=== PATIENT | female | born 1985 | race Caucasian/White ===

== ENCOUNTER 2019-06-15 17:42 | Outpatient (REF) | payer OTHER, SELFPAY ==
[2019-06-17 13:09] LABS: Chlamydia Result Negative (Negative); GC Result Negative (Negative)
== END 2019-06-15 18:02 ==
LOC: LBN 17:42
PROVIDERS: PCP Nurse Practitioner Gerontology; Visit Provider Nurse Practitioner Women's Health
DX: Z11.3 Encounter for screening for infections with a predominantly sexual mode of transmission (principal)
CPT/HCPCS: 87491; 87591

== ENCOUNTER 2019-06-23 16:37 | Emergency (ER) | payer OTHER, SELFPAY ==
[2019-06-23 16:40] VITALS: BP 132/75; PULSE 104; RESP 18; TEMP 36.5; O2SAT 98
--- NOTE | 2019-06-23 17:00 | ED.GENADUL_ITS ---
Discharge Plan Disposition Patient Disposition: HOME Condition: Stable Discharge Details Chief Complaint: Orthopedic Clinical Impression: Fracture of fifth metacarpal bone of right hand Primary Care Provider: Day Ge ED Provider: Adolfo Helton Home Meds and New Rx's Prescriptions: No Action norgestimate-ethinyl estradiol [Sprintec (28)] 0.25-35 mg-mcg tablet 1 tab PO DAILY Qty: 84 RF: 5 Discharge Instructions Additional Instructions: 1. Drink plenty of fluids. 2. Continue all medications as prescribed. 3. Acetaminophen 1000mg every 4 hours (up to 5 time a day) and/or ibuprofen 600mg every 6 hours as needed for fever or pain. 4. Wear splint for comfort until orthopedic reevaluation. Ice and elevate whenever possible. Avoid getting splint wet when bathing/showering. Return to the Emergency Department (ED) if your condition worsens, does not improve as expected, or for ANY other concerns. Specifically, return if you have new or uncontrolled pain, worsening fever, difficulty breathing, vomiting, or are unable to drink fluids. Referrals: Jon Subramanian MD [ [facility] STAFF PHYSICIAN] - Discharge Data Discharge Date/Time-TO BE ENTERED AT DEPARTURE: 06/23/19 18:27 Medical Decision Making 33-year-old who presented with acute on the right hand pain after hitting a me chente dryer. Exam significant for soft tissue swelling, ecchymosis and tenderness at the fifth metacarpal. X-ray diagnostic for 1/5 metacarpal fracture. Regional anesthesia achieved by applying an ultrasound-guided ulnar nerve block with 45% bupivacaine. Patient subsequently placed in an ulnar gutter splint by CARLEY Blackwood. Discharged home with a plan for outpatient orthopedic follow- up. Given usual and customary return instructions. Medical Records Medical records reviewed: Yes I reviewed the patient's medical records. Imaging Data Radiologic Study: Attestation: I personally reviewed and interpreted this imaging study as follows: Imaging: X-Ray (Right hand) My impression: Fifth fifth metacarpal fracture. Images reviewed independently contemporaneously by myself. Radiologist's impression: Not available at time of clinical management disposition. HPI 33-year-old with a past medical history which includes chronic vulvitis and more recent hip pain self medicated with meloxicam. Presents with acute right ulnar hand pain and swelling associated with hitting her hand against a metal dryer. She had immediate pain and swelling at the site of impact along her ulnar hand and has been unable to extend or flex her little finger because of pain. She denies any other significant injury. She has no previous history of metacarpal fracture. General Date/Time Provider Initiated Documentation: 06/23/19 16:57 . Related Data Home Medications Medication Instructions Recorded Confirmed norgestimate 0.25 mg-ethinyl 1 tab PO DAILY #84 tab 06/15/19 06/23/19 estradiol 35 mcg tablet Previous Rx's Medication Instructions Recorded norgestimate 0.25 mg-ethinyl 1 tab PO DAILY #84 tab 06/15/19 estradiol 35 mcg tablet Allergies Allergy/AdvReac Type Severity Reaction Status Date / Time No Known Allergies Allergy Unverified 06/23/19 16:44 General Stated Complaint: Orthopedic ADIN: 4 Review of Systems All systems reviewed & are unremarkable except as noted in HPI and below PFSH Medical History Chronic vulvitis Oral contraceptive use (Acute) Family History Mother Hyperlipidemia Father Diabetes Grandfather Hyperlipidemia Grandfather No problems noted. Grandmother No problems noted. Grandmother No problems noted. Social History Smoking/Tobacco Use Status: Former Tobacco Use Alcohol Intake: current Alcohol Intake frequency: a few times a week Drug use: Never Substance use type: does not use Do you feel safe at home: Yes Do you feel safe in your relationship?: Yes Female Reproductive History Menstrual control method: none History History 0 Para Hx # Term Pregnancies Multiple births Hx # Pregnancies Ectopic pregnancies AB induced Hx Number of Living Children AB spontaneous Exam Narrative Exam Narrative: Nursing note and vital signs have been reviewed and noted. GENERAL: alert, active, no acute distress, well -hydrated, well-nourished HEENT: atraumatic/normocephalic, PERRLA, EOMI, conjunctiva clear, external ears/canals normal, nasal mucosa normal NECK: supple, full range of motion CARDIOVASCULAR: nl pulses, no edema PULMONARY: nl effort, no audible wheezing or stridor ABDOMEN: non-distended EXTREMITY: normal muscle tone, right hand: Significant soft tissue swelling, ecchymosis, tenderness at the ulnar hand at the pinky metacarpal. No significant wrist tenderness, distal ulna/ulnar styloid tenderness, or tenderness at the metacarpal phalangeal joint. NUERO: normal mentation, moving all extremities, normal stance and gait, PSYCH: alert and oriented SKIN: no new rashes or lesions Course Vital Signs Vital signs: Vital Signs Temperature 97.7 F 06/23/19 16:40 Pulse 104 H 06/23/19 16:40 Respiratory Rate 18 06/23/19 16:40 Blood Pressure 132/75 06/23/19 16:40 Pulse Oximetry 98 06/23/19 16:40 Temperature 97.7 F 06/23/19 16:40 Temperature Source Temporal Artery Scan 06/23/19 16:40 Pulse 104 H 06/23/19 16:40 Respiratory Rate 18 06/23/19 16:40 Respiratory Effort Non-Labored 06/23/19 16:43 Blood Pressure 132/75 06/23/19 16:40 Blood Pressure Position Sitting 06/23/19 16:40 Pulse Oximetry 98 06/23/19 16:40 Oxygen Delivery Method Room Air 06/23/19 16:40 Oxygen Flow Rate 0 06/23/19 16:40 Pain Level 8 06/23/19 16:46 Procedures Other Description: Ultrasound-guided ulnar nerve block. Ulnar nerve and surrounding structures visualized in the proximal ulnar forearm. Transducer and skin prepped prior to procedure. 0.25% bupivacaine used for local dermal anesthesia with a 27-gauge needle. Needle then visualized adjacent to the ulnar nerve and 8 cc of 0.25 bupivacaine infused with hydrodissection of the nerve. Excellent anesthesia achieved.
--- NOTE | 2019-06-23 17:13 | DI.RAD_ITS ---
EXAM: XR HAND RT COMPLETE INDICATION: Right ulnar hand contusion. COMPARISON: No exams were available for comparison TECHNIQUE: 2D digital imaging was performed. FINDINGS: There is an oblique fracture seen through the mid to proximal 5th metacarpal. There is ventral displ acement and mild dorsal angulation. No additional fractures are seen. IMPRESSION: 5th metacarpal fracture.
--- NOTE | 2019-06-23 17:26 | DI.VRAD_ITS ---
PROCEDURE INFORMATION: Exam: XR Right Hand Exam date and time: 06/23/2019 5:21 PM Age: 33 years old Clinical indication: Other: Right ulnar hand contusion TECHNIQUE: Imaging protocol: XR Right hand. Views: 3 or more views. COMPARISON: No relevant prior studies available. FINDINGS: Bones/joints: Displaced fracture of the proximal half of the 5th metacarpal. Fracture is displaced about 1/2 bone width. Soft tissues: Soft tissue swelling along the 5th metacarpal IMPRESSION: Displaced fracture of the proximal half of the 5th metacarpal. Fracture is displaced about 1/2 bone width. Dictated and Authenticated by: Smiley García MD. Ordering:SARITA Mata MD
[2019-06-23] MEDS: Bupivacaine 0.5% Pres-Free 30 ML VIAL (17:49)
[2019-06-23 18:28] VITALS: BP 123/66; PULSE 96; RESP 16; TEMP 36.5; O2SAT 99
== END 2019-06-23 18:27 | disposition home or self-care (01) ==
PROVIDERS: Emergency Provider Emergency Medicine; PCP Nurse Practitioner Gerontology
DX: S62.320A Displaced fracture of shaft of second metacarpal bone, right hand, initial encounter for closed fracture (principal); W22.03XA Walked into furniture, initial encounter
CPT/HCPCS: 26600; 73130

== ENCOUNTER 2019-07-03 07:39 | Day surgery (SDC) | payer OTHER, SELFPAY ==
--- NOTE | 2019-07-03 06:18 | W.PM.DSUDISC ---
Discharge Plan Disposition Patient Disposition: HOME Condition: Stable Discharge Details Reason For Visit: Right hand surgery Attending Provider: Richard Obrien Primary Care Provider: Day Ge Home Meds and New Rx's Prescriptions: New naproxen 250 mg tablet 250 - 500 mg PO BID PRN (Reason: pain, moderate) Qty: 30 RF: 0 oxycodone 5 mg tablet 5 - 10 mg PO Q4H PRN (Reason: moderate to severe pain) Qty: 9 RF: 0 Continued norgestimate-ethinyl estradiol [Sprintec (28)] 0.25-35 mg-mcg tablet 1 tab PO DAILY Qty: 84 RF: 5 multivitamin Tablet 1 tab PO DAILY RF: 0 Probiotic 10 billion cell Capsule 1 cell PO DAILY RF: 0 Discharge Instructions Additional Instructions: Surgery: Right hand fifth metacarpal ORIF Activity: Nonweightbearing in splint at all times. Recommend elevation over the next few days to minimize swelling. Encourage daily full range of motion of all fingers and thumb to prevent stiffness. A physical therapy prescription will be provided separately in the office and follow-up if necessary. Prescriptions: Encourage daily ambulation to prevent blood clot Naproxen 250 mg take 1-2 every 12 hours with a meal as needed for moderate pain Oxycodone 5 mg take 1-2 every 4-6 hours as needed for severe pain You may use [id number] Tylenol (acetaminophen) as needed for mild pain. These pain medications may be taken all at once or in different combinations as needed. Also, recommend Colace (docusate) as a stool softener as surgery and pain medicine cause constipation. Dressings: Leave splint and dressing in place until follow-up. Keep clean and dry at all times. Follow-up: 10-[address] Obrien Please call the office during business hours with any questions or concerns. Let us know right away if you develop any redness, drainage, fevers, chest pain, or trouble breathing. Do not drink alcohol or drive for at least 24 hours after anesthesia. Referrals: Richard Obrien MD [ [facility] STAFF PHYSICIAN] - Discharge Orders Discharge Orders: Discharge Order (Routine); Ordered 07/03/19 Ordered By: Richard Obrien DS: Diagnosis Discharge Diagnosis (1) Fracture of shaft of fifth metacarpal bone: Status: Acute
[2019-07-03 07:45] VITALS: BP 127/71; PULSE 82; RESP 18; TEMP 36.7; O2SAT 99
[2019-07-03] MEDS: Lactated Ringers 1,000 ML 100 ML IV (08:30)
[2019-07-03] MEDS: ceFAZolin 2 GM/50 ML BAG IVPB (08:53)
--- NOTE | 2019-07-03 08:56 | ROE_ITS ---
Date of service: 07/03/19 Time of Service: 10:41 Operative Note Operative Note DATE OF PROCEDURE: 07/03/19 PRE-OP DIAGNOSIS: Right hand displaced fifth metacarpal fracture POST-OP DIAGNOSIS: same PROCEDURE: Right hand fifth metacarpal ORIF SURGEON: Richard Obrien PRINTED CIRCUIT DESIGNER: None None PRINTED CIRCUIT DESIGNER: Amaris Browning ANESTHESIA: GETA and local ESTIMATED BLOOD LOSS: 5 TOURNIQUET TIME: 49 COMPLICATIONS: None Patient was transported to: PACU Patient's condition: stable Implants: Synthes 2.0 mm 6-hole modular hand system Indications: Please see complete medical record for details. Procedure Description: The patient was taken to the operating room and transferred to the operating room table. Anesthesia was induced. All bony prominences were well-padded. Preoperative antibiotics were administered. The right hand was prepped and draped in the usual sterile fashion. The correct patient, procedure, and side of the procedure were all verified prior to incision. The fracture was localized under fluoroscopic guidance. A longitudinal incision was made ulnar to the fifth metacarpal shaft and carried full-thickness down to the bone. Care was taken to retract and ulnar branch of the dorsal ulnar sensory nerves. Hand instruments were used to clean up and expose the fracture as well as the dorsal ulnar metacarpal shaft surface. Reduction was provisionally obtained using bone forceps and confirmed under direct visualization of fracture randhawa in fluoroscopic guidance. A 6 hole 2.4 mm plate was placed over the bone but felt to be too large for this patient's metacarpal. A 6-hole 2.0 mm plate was chosen instead and found to fit well. The plate was filled with bicortical 2.0 mm cortex screws to proximally and 3 distally to the fracture site. Final AP lateral and oblique fluoroscopic images showed excellent reduction of the fracture and appropriate hardware placement and screw lengths. The wound was copiously irrigated normal saline. A sterile moist lap was applied to the wound and pressure was held for a few minutes after the tourniquet was let down. Careful hemostasis was achieved with cautery. Subcutaneous tissue was closed using 2-0 Monocryl in a buried interrupted fashion. 3-0 Monocryl was used to close the skin in a subcuticular running fashion. Mastisol and Steri-Strips were applied across the incision. Dry before for gauze sterile soft roll and Reese wrap were applied to the patient's hand and wrist. The patient awoke from anesthesia without complication was taken recovery room in stable condition.
--- NOTE | 2019-07-03 10:35 | DI.RAD_ITS ---
EXAM: XR HAND RT LIMITED CLINICAL HISTORY: FRACTURED FINGER. TECHNIQUE: 2D and realtime digital imaging was performed. COMPARISON: XR HAND RT COMPLETE from 06/23/2019 FINDINGS: Fluoroscopy was provided for Dr. Obrien in the OR. Hard copy images show placement of a fixation randy te across the 5th metacarpal for fracture fixation. The alignment is now anatomic. FLUORO TIME: 12.7 seconds
[2019-07-03 10:40] VITALS: BP 128/61; PULSE 90; RESP 16; TEMP 37.1; O2SAT 95
[2019-07-03 10:45] VITALS: BP 126/65; PULSE 88; RESP 12; TEMP 37.1; O2SAT 95
[2019-07-03 10:50] VITALS: BP 125/63; PULSE 84; RESP 12; TEMP 37.1; O2SAT 94
[2019-07-03] MEDS: fentaNYL 100 MCG/2 ML VIAL IVP (10:55)
[2019-07-03 11:05] VITALS: BP 127/68; PULSE 84; RESP 12; TEMP 37.1; O2SAT 96
[2019-07-03 11:50] VITALS: BP 115/75; PULSE 74; RESP 16; TEMP 36.6; O2SAT 98
== END 2019-07-03 12:40 | disposition home or self-care (01) ==
PROVIDERS: PCP Nurse Practitioner Gerontology; Visit Provider Student in an Organized Health Care Education/Training Program
PROC: (CPT 26615; principal; 2019-07-03 09:00)
DX: S62.326A Displaced fracture of shaft of fifth metacarpal bone, right hand, initial encounter for closed fracture (principal); W22.8XXA Striking against or struck by other objects, initial encounter; Z87.19 Personal history of other diseases of the digestive system
CPT/HCPCS: 26615; 76000; 73120; J0690; J1100; J1885; J2001; J2405; J2704; J3010

== ENCOUNTER 2019-07-14 14:50 | Outpatient (CLI) | payer OTHER, SELFPAY ==
--- NOTE | 2019-07-14 14:22 | DI.RAD_ITS ---
EXAM: XR HAND RT LIMITED INDICATION: 1ST POST OP S/P ORIF. COMPARISON: XR HAND RT LIMITED from 07/03/2019 TECHNIQUE: 2D digital imaging was performed. FINDINGS: Screw and plate fixation is again noted along the 5th metacarpal for fracture fixation. There is no change in fracture or hardware alignment.
== END 2019-07-14 15:10 ==
PROVIDERS: PCP Nurse Practitioner Gerontology; Visit Provider Student in an Organized Health Care Education/Training Program
DX: S62.326D Displaced fracture of shaft of fifth metacarpal bone, right hand, subsequent encounter for fracture with routine healing (principal)
CPT/HCPCS: 73120

== ENCOUNTER 2019-08-18 14:29 | Outpatient (CLI) | payer OTHER, SELFPAY ==
--- NOTE | 2019-08-18 14:27 | DI.RAD_ITS ---
EXAM: XR HAND RT LIMITED INDICATION: FOLLOW UP. COMPARISON: XR HAND RT LIMITED from 07/14/2019 TECHNIQUE: 2D digital imaging was performed. FINDINGS: There has been no change in the alignment of the 5th metacarpal fracture or hardware. No new abnorma lities are seen. DATA REPOSITORY: RADIATION DOSE DELIVERED:
== END 2019-08-18 14:49 ==
PROVIDERS: PCP Nurse Practitioner; Visit Provider Student in an Organized Health Care Education/Training Program
DX: S62.326D Displaced fracture of shaft of fifth metacarpal bone, right hand, subsequent encounter for fracture with routine healing (principal)
CPT/HCPCS: 73120

== ENCOUNTER 2019-08-21 13:40 | Outpatient (CLI) | payer OTHER, SELFPAY ==
[2019-08-21 14:02] LABS: HCT 40.1 % (36.0-46.0); HGB 13.6 g/dL (12.0-15.5); Mean Corp. HGB Concentration 33.9 g/dL (32.0-36.0); Mean Corpuscular Hemoglobin 29.1 pg (27.0-33.0); Mean Corpuscular Volume 85.7 fL (80-95); Mean Platelet Volume 9.3 fL (8.0-11.0); Platelet Count 411 x1000/uL (130-400); RBC 4.68 m/cumm (4.00-5.20); RBC Distribution Width 12.8 % (11.7-14.6); White Blood Cell Count 8.29 k/cumm (4.4-10.8)
[2019-08-21 15:19] LABS: Calculated LDL 109 mg/dL (<100); Cholesterol 180 mg/dL (<200); HDL Cholesterol 62 mg/dL (40-60); Triglyceride 47 mg/dL (<150)
== END 2019-08-21 14:00 ==
PROVIDERS: PCP Nurse Practitioner; Visit Provider Obstetrics & Gynecology
DX: N93.8 Other specified abnormal uterine and vaginal bleeding (principal); Z13.6 Encounter for screening for cardiovascular disorders
CPT/HCPCS: 36415; 80061; 85027; 84443

== ENCOUNTER 2019-08-21 14:25 | Outpatient (REF) | payer OTHER, SELFPAY ==
--- NOTE | 2019-08-21 13:30 | PAPFT_PTH ---
PATIENT: Mayi Martinez LOC: [facility] U#:[id number] AGE/SX: 33/F ROOM: RE08/21/[address]: Tejas Contreras MD : 1985 BED: DIS: 08/21/2019 SPEC #: [id number] RECD: 08/21/19 17:54 STATUS: HERBIE REAilyn #: [id number] KYLAH: 08/21/19 13:[address]: Tejas Contreras DEPT: [facility] Cytology RECD BY: Shira Anders ENTERED: 08/21/19 17:55 SP TYPE: PAPFT OTHR DR: Gauri Roberto, PhD SALES INSPECTOR Tissues: 1 - CX/ENDOCX FOR PAP SMEARS Procedures: PAP THIN PREP/UVM Screening HPV DNA PROBE Comments: [id number] (CHLAMYDIA/GC)
[2019-08-24 15:48] LABS: Chlamydia Result Negative (Negative); GC Result Negative (Negative)
== END 2019-08-21 14:45 ==
LOC: LBN 14:25
PROVIDERS: PCP Nurse Practitioner; Visit Provider Obstetrics & Gynecology
DX: Z12.4 Encounter for screening for malignant neoplasm of cervix (principal); Z11.3 Encounter for screening for infections with a predominantly sexual mode of transmission
CPT/HCPCS: 87491; 87591; 88142; 87624

== ENCOUNTER 2019-09-10 09:54 | Outpatient (REF) | payer OTHER, SELFPAY | END 2019-09-10 10:14 | LOC: LBN 09:54 | PROVIDERS: PCP Nurse Practitioner; Visit Provider Obstetrics & Gynecology | DX: N89.8 Other specified noninflammatory disorders of vagina (principal) | CPT/HCPCS: 87480; 87510; 87660 ==

== ENCOUNTER 2020-05-25 16:51 | Outpatient (REF) | payer OTHER, SELFPAY ==
[2020-05-27 14:05] LABS: Chlamydia Result Negative (Negative); GC Result Negative (Negative)
== END 2020-05-25 17:11 ==
LOC: LBN 16:51
PROVIDERS: PCP Nurse Practitioner; Visit Provider Nurse Practitioner Women's Health
DX: Z11.3 Encounter for screening for infections with a predominantly sexual mode of transmission (principal)
CPT/HCPCS: 87491; 87591

== ENCOUNTER 2020-06-13 01:46 | Outpatient (CLI) | payer OTHER, SELFPAY ==
--- NOTE | 2020-06-13 08:45 | DI.US_ITS ---
EXAM: US PELVIS TRANSVAGINAL CLINICAL HISTORY: AUB, dysfunctional uterine bleeding, N93.8 TECHNIQUE: Ultrasound of the pelvis was performed both transabdominal and transvaginal. COMPARISON: No exams were available for comparison FINDINGS: UTERUS: Measures 7 cm length x 3.4 cm AP x 5 cm wide. There is a small 6 x 7 millimeter fundal fibroid noted. Endometrial thickness measures 2 mm. There is no fluid in the endometrial canal. CERVIX: There are no obvious nabothian cysts. RIGHT OVARY: Measures 0.5 x 1.8 x 1.7 cm No significant cysts nor masses evident in the right ovary. In the right adnexa there is a cystic st ructure interposed between the uterus and ovary measuring 1.4 x 1.3 x 0.9 cm. This is seen on transv aginal study. LEFT OVARY: Measures 2.6 x 1.6 x 2.6 cm No significant cysts nor masses evident in the left ovary. CUL-DE-SAC: No free fluid evident. Both kidneys appear unremarkable. IMPRESSION: 1. Solitary tiny fundal fibroid noted. No significant endometrial findings. 2. There is a cystic structure interposed between the uterus and right ovary measuring 14 x 13 x 9 mi llimeters, possibly paraovarian cyst versus tubal dilatation. Recommend follow-up transvaginal ultra sound after appropriate clinical interval. No abnormal findings in the opposite-left adnexa. 3. No free fluid evident in the adnexal regions and cul-de-sac. Unremarkable appearing kidneys. DATA REPOSITORY:
== END 2020-06-13 02:06 ==
PROVIDERS: PCP Nurse Practitioner; Visit Provider Nurse Practitioner Women's Health
DX: N93.8 Other specified abnormal uterine and vaginal bleeding (principal); R93.89 Abnormal findings on diagnostic imaging of other specified body structures
CPT/HCPCS: 76830; 76856

== ENCOUNTER 2020-06-13 03:02 | Outpatient (CLI) | payer OTHER, SELFPAY ==
[2020-06-13 13:42] LABS: TSH (W/Ref FT4) 1.56 uIU/mL (0.36-3.74)
== END 2020-06-13 03:22 ==
PROVIDERS: PCP Nurse Practitioner; Visit Provider Nurse Practitioner Women's Health
DX: N93.8 Other specified abnormal uterine and vaginal bleeding (principal)
CPT/HCPCS: 36415; 84443

== ENCOUNTER 2020-08-17 01:10 | Outpatient (CLI) | payer MEDICAID, SELFPAY ==
--- NOTE | 2020-08-17 08:00 | DI.US_ITS ---
EXAM: US PELVIS TRANSVAGINAL CLINICAL HISTORY: f/u ? paraovarian cyst,dysfunctional uterine bleeding,r93.89,n93.8. TECHNIQUE: Transabdominal and transvaginal pelvic ultrasound was performed using standard protocol. COMPARISON: US US PELVIS TRANSVAGINAL from 06/13/2020 FINDINGS: KIDNEYS: Kidneys are symmetric in size. No evidence of renal calculi. No evidence of hydronephrosis. No renal mass or cyst identified. UTERUS: Position: Anteverted. Size: 7.4 long by 3.9 AP by 4.9 transverse cm Endometrium: 0.2 cm. Normal for patient's menstrual status. Myometrium: Uterine fibroid is again seen. Cervix: Unremarkable. OVARIES: Right: 3.6 x 3.2 x 1.6 cm Cyst or mass: There is again seen a simple cyst adjacent to the right ovary which may represent a par aovarian cyst. It measures 1.2 x 1.2 x 1.1 cm. This compares to 1.4 x 1.3 x 0.9 cm. Left: 1.8 x 2.4 x 1.8 cm Cyst or mass: None. DOPPLER: Color: Symmetric and uniform flow to both ovaries. No hyperemia. Duplex: Normal ovarian arterial waveforms visualized. CUL-DE-SAC: Free fluid: None. Other: None. IMPRESSION: 1. Normal sonographic appearance of the kidneys. 2. Normal-appearing uterus with endometrial stripe within normal limits. 3. Unremarkable bilateral ovaries. 4. Stable right paraovarian cystic lesion. DATA REPOSITORY:
== END 2020-08-17 01:30 ==
PROVIDERS: PCP Nurse Practitioner; Visit Provider Nurse Practitioner Women's Health
DX: N93.8 Other specified abnormal uterine and vaginal bleeding (principal); R93.89 Abnormal findings on diagnostic imaging of other specified body structures
CPT/HCPCS: 76830; 76856

== ENCOUNTER 2020-11-03 18:44 | Outpatient (REF) | payer MEDICAID, SELFPAY ==
[2020-11-07 17:25] LABS: Calprotectin 43.7 mcg/g
== END 2020-11-03 18:45 | disposition home or self-care (01) ==
LOC: LBN 18:44
PROVIDERS: PCP Nurse Practitioner; Visit Provider Nurse Practitioner Adult Health
DX: R19.7 Diarrhea, unspecified (principal)
CPT/HCPCS: 83993

== ENCOUNTER 2024-01-22 10:58 | Outpatient (REF) | payer BC, SELFPAY ==
--- NOTE | 2024-01-22 | PAPFT_PTH ---
PATIENT: Mayi Martinez LOC: [facility] U#:[id number] AGE/SX: 38/F ROOM: RE01/22/[address]: Lilly Dumont NP : 1985 BED: DIS: 01/22/2024 SPEC #: [id number] RECD: 01/22/24 16:25 STATUS: HERBIE [place] #: [id number] KYLAH: 01/22/24 00:[address]: Lilly Dumont NP DEPT: [facility] Cytology RECD BY: Archana Mcdonald ENTERED: 01/22/24 16:25 SP TYPE: PAPFT OTHR DR: Madie Lagunas NP Tissues: 1 - CX/ENDOCX FOR PAP SMEARS Procedures: PAP THIN PREP/UVM Screening HPV DNA PROBE Comments: [id number] (HPV 16 & 18/45)
== END 2024-01-22 10:59 | disposition home or self-care (01) ==
LOC: LBN 10:58
PROVIDERS: PCP Nurse Practitioner Family; Visit Provider Nurse Practitioner Women's Health
DX: Z01.419 Encounter for gynecological examination (general) (routine) without abnormal findings (principal); Z30.41 Encounter for surveillance of contraceptive pills; Z12.4 Encounter for screening for malignant neoplasm of cervix
CPT/HCPCS: 88142; 87624

== ENCOUNTER 2025-03-03 02:14 | Outpatient (CLI) | payer BC, SELFPAY ==
[2025-03-03 08:00] LABS: Calculated LDL 159 mg/dL (<100); Cholesterol 227 mg/dL (<200); HDL Cholesterol 57 mg/dL (>or=50); TSH (W/Ref FT4) 0.63 uIU/mL (0.36-3.74); Triglyceride 56 mg/dL (<150)
[2025-03-03 14:50] LABS: Hemoglobin A1C 5.2 % (<5.7)
== END 2025-03-03 02:15 | disposition home or self-care (01) ==
LOC: LBO 02:14
PROVIDERS: PCP Nurse Practitioner Family; Visit Provider Nurse Practitioner Family
DX: Z13.220 Encounter for screening for lipoid disorders (principal); Z13.1 Encounter for screening for diabetes mellitus; E03.9 Hypothyroidism, unspecified
CPT/HCPCS: 36415; 80061; 83036; 84443